=== PATIENT | female | born 1980 | race Caucasian/White ===

== ENCOUNTER 2023-12-14 13:08 | Outpatient (AMB) | payer BC, SELFPAY ==
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
[2023-12-14 13:10] VITALS: BP 96/72; PULSE 78; O2SAT 99; BMI 21.9
== END 2023-12-14 14:27 | disposition home or self-care (01) ==
PROVIDERS: PCP Internal Medicine; Visit Provider Nurse Practitioner Family
DX: R42 Dizziness and giddiness (principal); G47.19 Other hypersomnia; G47.9 Sleep disorder, unspecified; R06.83 Snoring; H53.9 Unspecified visual disturbance; H53.129 Transient visual loss, unspecified eye; G43.109 Migraine with aura, not intractable, without status migrainosus
CPT/HCPCS: 99204

== ENCOUNTER → 2023-12-14 13:08 | Outpatient (BNVA) | payer BC, SELFPAY | PROVIDERS: PCP Internal Medicine; Visit Provider Nurse Practitioner Family ==

== ENCOUNTER 2024-01-31 12:55 | Outpatient (REF) | payer BC, SELFPAY ==
--- NOTE | ~2024-01-31 | MR_ITS ---
EXAMINATION: MR BRAIN WITHOUT AND WITH CONTRAST CLINICAL INFORMATION: Transient visual loss. Dizziness x5 years. COMPARISON: None available. TECHNIQUE: Multiplanar, multisequence MRI of the brain was obtained before and after the intravenous administration of 5 mL Gadavist. FINDINGS: There is no area of abnormal restricted diffusion to indicate an acute/subacute cerebral or cerebellar infarction. There is no intracranial hemorrhage. There is no mass effect or midline shift. The brain parenchyma demonstrates normal signal intensity on T2 and FLAIR sequences. There is no extra-axial fluid collection. The ventricles are normal in size. Midline structures are normal in appearance. The cerebellar tonsils are normally positioned. There is no pathologic enhancement following the intravenous administration of contrast. The flow voids at the base of the brain are intact. The orbits are symmetric and within normal limits. There is a small mucosal retention cyst along the lateral wall of the left maxillary sinus. Mastoid air cells appear clear. MR/MR head/brain wo/w con IMPRESSION: Normal contrast-enhanced brain MRI. Electronically signed by: Ronaldo Kraft DO 03/19/2024 02:35 PM EST
[2024-01-31] MEDS: gadobutroL 7.5 ML VIAL IVPUSH (13:58)
== END 2024-01-31 12:56 | disposition home or self-care (01) ==
LOC: HO.MRI 12:55
PROVIDERS: PCP Internal Medicine; Visit Provider Nurse Practitioner Family
DX: H53.129 Transient visual loss, unspecified eye (principal); R42 Dizziness and giddiness; H53.9 Unspecified visual disturbance
CPT/HCPCS: 70553; A9585

== ENCOUNTER → 2024-04-10 13:21 | Outpatient (REF) | payer BC, SELFPAY | LOC: HO.SL 13:21 | PROVIDERS: PCP Internal Medicine; Visit Provider Nurse Practitioner Family | DX: G47.19 Other hypersomnia (principal); G47.9 Sleep disorder, unspecified; R06.83 Snoring | CPT/HCPCS: 95806 ==

== ENCOUNTER → 2024-05-30 19:30 | Outpatient (REF) | payer BC, SELFPAY ==
--- OUTSIDE RECORDS SUMMARY | 2024-05-30 21:31 | XMS_ITS | Clinical Summary ---
Author Organization [facility] Address [address] [place] [address] Care Team Providers Care Airport Clerk Name Role Phone Clark Nye MD Primary Care Prov ider Allergies Active Allergy Reactions Criticality Noted Date Comments Hydrocodone-Acetaminophen Itching 05/05/2009 Oxycodone-Acetaminophen Itching 02/22/2009 Penicillin G Potassium 04/20/2005 Other Reaction(s): Hives/Urticaria Tramadol Hcl Itching 03/09/2009 Medications Medication Sig Dispensed Refills Start Date End Date Status calcium citrate/vitamin D3 (CALCIUM CITRATE + D ORAL) Take by mouth daily. Active CYANOCOBALAMIN, VITAMIN B-12, ORAL Take by mouth daily. Active biotin 1 mg tablet Take by mouth daily. Active magnesium glycinate 100 mg tablet Take by mouth daily. Active hydroCHLOROthiazide 12.5 mg tablet Take 0.5 Tablets by mouth daily. 06/07/2023 Active Active Problems Problem Noted Date Diagnosed Date Neck pain 05/09/2022 Cervical radiculopathy 03/03/2022 Overview (04/15/2024): Seeing Dr Renae/Porfirio Castillo Shoulder impingement syndrome, right 10/24/2017 Esophageal dysmotility 11/02/2016 Overview (04/15/2024): Moderate. Seen on barium swallow 10/2016. Herpes simplex type 1 antibody positive 06/16/19 16 IBS (irritable bowel syndrome) 11/28/2013 Overview (04/15/2024): Diarrhea predominant IBS, colonoscopy [address] Prashant Franks. EGD and duodenal biopsies normal 2013. Lactose intolerance 03/04/2012 Pain of cervical facet joint 01/06/2010 Cervical sprain 01/06/2010 Osteopenia 05/27/2009 Overview (04/15/2024): Currently on HCTZ Asthma 04/20/2005 Headache 04/20/2005 Lumbago 04/20/2005 Encounters Date Type Department Care Team Description 05/07/2024 1:00 PM EST - 05/07/2024 11:59 PM EST Hospital Encounter [facility] Bone Density [address] [place] [address] Osteopenia, unspecified location Discharge Disposition: Home or Self Care from Last 3 Months Immunizations Name Administration Dates Next Due Influenza Quadravalent, MDCK , 0.5ml, preservative free (Flucelvax) 6mo and older 02/24/2020 Influenza trivalent, 0.5mL, preservative free (Fluarix; FluLaval; Fluzone) ages 6mo and older (Afluria) 3 years and older 03/05/2012 Influenza trivalent, with preservative (Fluzone; Afluria) 6mo and older 03/17/2016,01/10/2013,03/19/2011,2009,01/12/2009 Td, Unspecified 04/27/2004 Tdap Tetanus diptheria acell ular pertussis (Boostrix; Adacel) 7yo and older 01/06/2020,08/27/2009 Surgical History Surgery Date Site/Laterality Comments COLONOSCOPY 12/18/2005 PROCEDURE: IN COLONOSCOPY FLX DX W/COLLJ SPEC WHEN PFRMD; COMMENT: Golden; normal; dx: IBS-D ESOPHAGOGASTRODUODENOSCOPY 11/28/2013 PROCEDURE: IN EGD TRANSORAL BIOPSY SINGLE/MULTIPLE; COMMENT: Visually normal, duodenal biopsies: normal OTHER SURGICAL HISTORY 10/2014 PROCEDURE: IN UTERINE SUSPENSION W/WO SHORTENING LIGAMENTS SPX; COMMENT: rectocele, sling and Mirena insertion OTHER SURGICAL HISTORY 03/04/2018 PROCEDURE: HISTORICAL VAGINAL HYSTERECTOMY WITH BSO; COMMENT: GEE/BSO lap sacrocolpopexy, cystoscopy for stage II pelvic organ prolapse NOSE SURGERY 06/2020 PROCEDURE: IN UNLISTED PROCEDURE NOSE Medical History Medical History Date Comments Headache(784.0) 04/20/2005 DX:Headache(784. 0) Lumbago 04/20/2005 DX:Lumbago Childhood asthma 04/20/2005 DX:Childhood as thma Osteopenia 05/21/2009 DX:Osteopenia; C OMMENT: Referred to [facility] Client Retention Specialist, hx fractured vertabrae Other syndromes affecting ce rvical region 01/06/2010 DX:Other syndromes affecting cervical region Lactose intolerance 03/04/2012 DX:Lactose i ntolerance IBS (irritable bowel syndrome) 11/28/2013 D X:IBS (irritable bowel syndrome); COMMENT: Diarrhea predominant IBS, colonoscopy [address] Prashant Franks. History of chlamydia infection 04/2016 D X:History of chlamydia infection Esophageal dysmotility 11/02/2016 DX:Esopha geal dysmotility; COMMENT: Moderate. Seen on barium swallow 10/2016. Shoulder impingement syndrome, right 10/24/2017 DX:Shoulder impingement syndrome, right History of total hysterectom y with bilateral salpingo-oophorectomy (BSO) 03/08/2018 DX:History of to pavel hysterectomy with bilateral salpingo-oophorectomy (BSO); COMMENT: 03/04/18 stage II pelvic organ prolapse: vag Hyst, BSO, sacrocolpopexy, cystoscopy @ [facility] Family History Medical History Relation Name Comments Crohn's disease Aunt Paternal No Known Problems Brother Hyperlipidemia Father Hypertension Father No Known Problems Maternal Grandfather Coronary artery disease Maternal Grandmother Nephrolithiasis Mother Hyperlipidemia Paternal Grandfather Stroke Paternal Grandfather Dementia Paternal Grandmother No Known Problems Sister No Known Problems Son Breast cancer Neg Hx Colon cancer Neg Hx Diabetes Neg Hx Heart attack Neg Hx Ovarian cancer Neg Hx Relation Name Status Comments Aunt Paternal Alive Brother Alive Father Alive Maternal Grandfather (Age 85) Maternal Grandmother Mother Alive Paternal Grandfather Paternal Grandmother Sister Alive Son Alive : 10/11/12 Social History Tobacco Use Types Packs/Day Years Used Date Smoking Tobacco: Never Smokeless Tobacco: Never Alcohol Use Standard Drinks/Week Comments Not Currently 0 (1 standard drink = 0.6 oz pur e alcohol) Sex and Gender Information Value Date Recorded Sex Assigned at Not on file Gender Identity Not on file Sexual Orientation Not on file Job Start Date Occupation Industry Not on file Not on file Not on file Obstetrics History Last Filed Vital Signs Vital Sign Reading Time Taken Comments Blood Pressure 92/47 12/24/2023 1:52 PM EDT Pulse 59 12/24/2023 1:52 PM EDT Temperature - - Respiratory Rate - - Oxygen Saturation - - Inhaled Oxygen Concentration - - Weight 54.4 kg (120 lb) 12/24/2023 1:32 PM EDT Height 157.5 cm (5' 2 ) 12/24/2023 1:32 PM EDT Body Mass Index 21.95 12/24/2023 1:32 PM EDT Plan of Treatment Upcoming Encounters Date Type Department Care Team (Late st Contact Info) Description 06/12/2024 1:15 PM EST Office Visit [address] [phone] Justina Case MD [address] [place] [phone] 12/05/2024 3:00 PM EDT Office Visit Adult Medicine [facility] - [address] [phone] Clark Nye MD [address] [place] [address] [phone] Health Maintenance Due Date Last Done Comments Pneumococcal Vaccine: Pediatrics (0 to 5 Years) and At-Risk Patients (6 to 64 Years) (1 of 2 - PCV) 1985 Hepatitis B Vaccines (1 of 3 - 19+ 3-dose series) 1998 Colorectal Cancer Screening: Colonoscopy 01/23/2022 Depression Screening 01/23/2022 Social Influencers of Health Screening 01/23/2022 COVID-19 Vaccine ( season) 2023 05/10/2021, 09/16/2020, 08/19/2020 Influenza Vaccine (#1) 2023 , 03/17/2016, 01/10/2013, Additional history exists Breast Cancer Screening 12/11/2024 12/12/19 23, 12/01/2021, 06/02/2020, Additional history exists Cholesterol Screening (Lipid Panel) 12/04/2028 12/05/2023, 12/05/2023 DTaP,Tdap,and Td Vaccines (4 - Td or Tdap) 01/05/2030 01/06/2020, 08/27/2009, 04/27/2004 Hepatitis C Screening Completed 09/11/2017 HIV Screening Completed 03/16/2020 HIB Vaccines Aged Out No longer eligi ble based on patient's age to complete this topic HPV Vaccines Aged Out No longer eligi ble based on patient's age to complete this topic Hepatitis A Vaccines Aged Out No long er eligible based on patient's age to complete this topic IPV Vaccines Aged Out No longer eligi ble based on patient's age to complete this topic MMR Vaccines Aged Out No longer eligi ble based on patient's age to complete this topic Meningococcal ACWY Vaccine Aged Out N o longer eligible based on patient's age to complete this topic RSV Immunization Patients Under 20 months Aged Out No longer eligible based on patient's age to complete this topic Varicella Vaccines Aged Out No longer eligible based on patient's age to complete this topic Procedures Procedure Name Priority Date/Time Associated Diagnosis Comments BD BONE DENSITY DXA AXIAL SKELETON Routine 05/07/2024 1:22 PM EST Osteopenia, unspecified location IN PROTEIN ELECTROPHORETIC FRACTIONATION & QUANTITATION SERUM Routine 03/10/2024 11:31 AM EST Osteopenia PROTEIN, TOTAL Routine 03/10/2024 11:31 AM EST Osteopenia BUN Routine 03/10/2024 11:31 AM EST Osteopenia CREATININE, SERUM Routine 03/10/2024 11: 31 AM EST Osteopenia PARATHYROID HORMONE INTACT Routine 03/10/2024 11:31 AM EST Osteopenia CALCIUM Routine 03/10/2024 11:31 AM EST Osteopenia ALBUMIN Routine 03/10/2024 11:31 AM EST Osteopenia VITAMIN D 25 HYDROXY Routine 03/10/2024 11:31 AM EST Osteopenia PROTEIN ELECTROPHORESIS, SERUM Routine 03/10/2024 11:31 AM EST Osteopenia CALCIUM, URINE, 24H Routine 03/10/2024 1 1:31 AM EST Osteopenia LIPID PANEL Routine 12/05/2023 AMRIFER SCREENING DIGITAL Routine 12/11/2022 2:55 PM EDT Encounter for screening mammogram for malignant neoplasm of breast HIV SCREENING Routine 03/16/2020 HEPATITIS C SCREENING Routine 09/11/2017 from Last 3 Months or Most Recently Relevant to Health Maintenance Results * BD Bone Density DXA Axial Skeleton (05/07/2024 1:22 PM EST) Anatomical Region Laterality Modality Wrist, Hip, L-spine Bone Densito metry 05/07/2024 4:38 PM EST Impressions 05/07/2024 4:40 PM EST Osteopenia. ? [id number] -------- FINAL REPORT -------- Dictated By: Kaylee Bailey Dictated Date: 05/07/2024 16:38 ET Assigned Physician: Kaylee Bailey Reviewed and Electronically Signed By: Kaylee Bailey Signed Date: 05/07/2024 16:40 ET Workstation ID: [id number] Transcribed By: Self Edit Transcribed Date: 05/07/2024 16:38 ET Narrative 05/07/2024 4:40 PM EST History: Osteopenia. Prior hysterectomy with bilateral salpingo-oophorectomy in 2018. Comparison: No comparison imaging at this institution. Findings: Bone densitometry is performed utilizing dual energy x-ray absorptiometry (DXA) in the [employer] unit. The lumbar spine and proximal femora are evaluated in the AP projection. The FRAX questionaire was completed. The results indicate low bone mass (osteopenia), with a right femoral neck T- score of -1.9. The Z score is -1.1, indicating low bone mineral density for age. ??The detailed DEXA report will be mailed to the referring physician's office. DualFemur FRAX: 10-year Probability of Fracture: Major Osteoporotic 3.2 percent ??Hip 0.5 percent. Procedure Note Kaylee Bailey MD - 05/07/2024 History: Osteopenia. Prior hysterectomy with bilateralsalpingo-oophorectomy in 2018. Comparison: No comparison imaging at this institution. Findings: Bone densitometry is performed utilizing dual energy x-ray absorptiometry(DXA) in the [employer] unit. The lumbar spine and proximal femora areevaluated in the AP projection. The FRAX questionaire was completed. The results indicate low bone mass (osteopenia), with a right femoral neckT- score of -1.9. The Z score is -1.1, indicating low bone mineral densityfor age. The detailed DEXA report will be mailed to the referringphysician's office. DualFem[employer] FRAX: 10-year Probability of Fracture: Major Osteoporotic 3.2percent Hip 0.5 percent. IMPRESSION: Osteopenia. [id number] -------- FINAL REPORT -------- Dictated By: Kaylee Bailey Dictated Date: 05/07/2024 16:38 ET Assigned Physician: Kaylee Bailey Reviewed and Electronically Signed By: Kaylee Bailey Signed Date: 05/07/2024 16:40 ET Workstation ID: [id number] Transcribed By: Self Edit Transcribed Date: 05/07/2024 16:38 ET Justina Case MD IM DXA PROCEDURES * PATHOLOGIST REVIEW PROTEIN ELECTROPHORESIS (03/10/2024 11:31 AM EST) Pathologist Interpretation Marilyn Mota MD 03/13/2024 11:51 AM EST [facility] Blood Venous blood specimen / Unknown Venipuncture / Unknown 03/10/2024 11:31 AM EST 03/10/2024 11:31 AM EST Justina Case MD LAB BLOOD ORDERABLES [facility] [address] [place] [address], * Calcium, urine, 24H (03/10/2024 11:31 AM EST) Calcium, Ur 12.0 mg/dL LAB CHEMISTRY METHOD 03/10/2024 5:06 PM EST [facility] Calcium, 24H Urine 252 50 - 400 mg/24 hr LAB CHEMISTRY METHOD 03/10/2024 5:06 PM [facility] Urine Volume 2,100 mL LAB CHEMISTRY METHOD 03/10/2024 5:06 PM [facility] Collection Interval, Ur 24 hr LAB CHEMISTRY METHOD 03/10/2024 5:06 PM [facility] Urine Urine specimen from urethra / Unknown Non-blood Collection / Unknown 03/10/2024 11:31 AM EST 03/10/2024 11:31 AM EST Justina Case MD LAB URINE ORDERABLES Performing Organization Address City/[facility]/ZIP Co de Phone Number [facility] [address] [place] [address], * Creatinine (03/10/2024 11:31 AM EST) Creatinine 0.68 0.50 - 1.10 mg/dL LAB CHEMISTRY METHOD 03/10/2024 2:28 PM [facility] eGFR 110 >=60 mL/min/1. 73m2 LAB CHEMISTRY METHOD 03/10/2024 2:28 PM [facility] Comment:Calculation based on the??Chronic Kidney Disease Epidemiology Collaboration (CKD-EPI) equation refit??without adjustment for race. Blood Venous blood specimen / Unknown Venipuncture / Unknown 03/10/2024 11:31 AM EST 03/10/2024 11:31 AM EST Justina Case MD LAB BLOOD ORDERABLES Performing Organization Address City/[facility]/ZIP Co de Phone Number [facility] [address] [place] [address], [place] [phone] * Vitamin D 25 hydroxy (03/10/2024 11:31 AM EST) Pathologist [facility] Vit D, 25-Hydroxy 37.1 30.0 - 80.0 ng/mL LAB CHEMISTRY METHOD 03/10/2024 2:31 PM EST [facility] Blood Venous blood specimen / Unknown Venipuncture / Unknown 03/10/2024 11:31 AM EST 03/10/2024 11:31 AM EST Justina Case MD LAB BLOOD ORDERABLES Performing Organization Address City/[facility]/ZIP Co de Phone Number [facility] [address] [place] [address], [place] [phone] * BUN (03/10/2024 11:31 AM EST) [facility] BUN 12 5 - 25 mg/dL LAB CHEMISTRY METHOD 03/10/2024 2:28 PM EST [facility] Blood Venous blood specimen / Unknown Venipuncture / Unknown 03/10/2024 11:31 AM EST 03/10/2024 11:31 AM EST Justina Case MD LAB BLOOD ORDERABLES Performing Organization Address City/[facility]/ZIP Co de Phone Number [facility] [address] [place] [address], [place] [phone] * Protein electrophoresis, serum (03/10/2024 11:31 AM EST) [facility] Total Protein 6.7 6.0 - 8.0 g/dL LAB CHEMISTRY METHOD 03/13/2024 11:51 AM [facility] Albumin, Serum 3.9 2.9 - 4.1 g/dL LAB CHEMISTRY METHOD 03/13/2024 11:51 AM [facility] Alpha 1 Globulin (g/dL) 0.2 0.1 - 0.5 g/dL LAB CHEMISTRY METHOD 03/13/2024 11:51 AM [facility] Alpha 2 Globulin (g/dL) 0.8 0.7 - 1.5 g/dL LAB CHEMISTRY METHOD 03/13/2024 11:51 AM [facility] Beta (g/dL) 0.7 0.7 - 1.5 g/dL LAB CHEMISTRY METHOD 03/13/2024 11:51 AM [facility] Gamma Globulin (g/dL) 1.1 0.7 - 1.9 g/dL LAB CHEMISTRY METHOD 03/13/2024 11:51 AM [facility] SPEP Interpretation Essentially normal pattern. No M-Jameel seen. LAB CHEMISTRY METHOD 03/13/2024 11:51 AM [facility] Blood Venous blood specimen / Unknown Venipuncture / Unknown 03/10/2024 11:31 AM EST 03/10/2024 11:31 AM EST Justina Case MD LAB BLOOD ORDERABLES [facility] [address] [place] [address], * Protein, total (03/10/2024 11:31 AM EST) Total Protein 6.7 6.0 - 8.0 g/dL LAB CHEMISTRY METHOD 03/10/2024 8:07 PM [facility] Blood Venous blood specimen / Unknown Venipuncture / Unknown 03/10/2024 11:31 AM EST 03/10/2024 11:31 AM EST Justina Case MD LAB BLOOD ORDERABLES Performing Organization Address [facility]/ZIP Co de Phone Number [facility] [address] [place] [address], * Parathyroid hormone intact (03/10/2024 11:31 AM EST) PTH 55.8 18.5 - 88.0 pcg/mL LAB CHEMISTRY METHOD 03/10/2024 2:32 PM EST [facility] Blood Venous blood specimen / Unknown Venipuncture / Unknown 03/10/2024 11:31 AM EST 03/10/2024 11:31 AM EST Justina Case MD LAB BLOOD ORDERABLES Performing Organization Address [facility] Co de Phone Number [facility] [address] [place] [address], * Calcium (03/10/2024 11:31 AM EST) Calcium 9.1 8.5 - 10.5 mg/dL LAB CHEMISTRY METHOD 03/10/2024 2:28 PM EST [facility] Blood Venous blood specimen / Unknown Venipuncture / Unknown 03/10/2024 11:31 AM EST 03/10/2024 11:31 AM EST Justina Case MD LAB BLOOD ORDERABLES Performing Organization Address City/[facility]/ZIP Co de Phone Number [facility] [address] [place] [address], [place] [phone] * Albumin (03/10/2024 11:31 AM EST) Albumin 4.0 3.2 - 5.0 g/dL LAB CHEMISTRY METHOD 03/10/2024 2:28 PM EST [facility] Blood Venous blood specimen / Unknown Venipuncture / Unknown 03/10/2024 11:31 AM EST 03/10/2024 11:31 AM EST Justina Case MD LAB BLOOD ORDERABLES [facility] ([facility] [address] [place] [address], * Lipid panel (12/05/2023) LDL/HDL Ratio 2 0 - 4 Triglycerides 47 0 - 150 mg/dL Cholesterol 117 0 - 200 mg/dL HDL 58 40 mg/dL LDL Cholesterol 50 0 - 100 mg/dL Blood Venous blood specimen / Unknown Historical Provider LAB BLOOD ORDERAB LES * MARIFER SCREENING DIGITAL (12/11/2022 2:55 PM EDT) Anatomical Region Laterality Modality Mammography 12/11/2022 2:20 PM EDT Narrative 12/11/2022 2:55 PM EDT [facility] Diagnostic Imaging Department [address] [place] [address] Patient: ??VANESSA HOLLINGSWORTH ?/Age/Sex: 1980 - Unit#: ??[id number] ? Location/Status: ??SPDIMAM/REG CLI ? Mnemonic/Ordering Site: ??DIGSC/SPMAM Ordering Physician: ??CLARK NYE Marifer Screening Digital - 12/11/22 - [id number] Report Status:Signed EXAM: [facility] Screening Digital EXAM DATE AND TIME: 12/11/2022 2:34 PM HISTORY: ??Routine screening mammography COMPARISON: ??12/01/2021, 06/01/2020 TECHNIQUE: Bilateral digital breast tomosynthesis was performed in the CC and MLO projections. Computer aided detection with [employer] 3D 3.1 was employed. TISSUE DENSITY: D. ??The breasts are extremely dense, which lowers the sensitivity of mammography. FINDINGS: No suspicious masses, grouped microcalcifications, or areas of architectural distortion are seen. The skin and vascularity are unremarkable. IMPRESSION: Stable mammographic appearance of the breasts. ??No evidence of malignancy is seen. A negative mammogram in the presence of a clinically suspicious palpable abnormality does not preclude the possibility of malignancy or alter the indications for biopsy. BI-RADS: ??Category 1: Negative RECOMMENDATION(S): 1: Routine screening mammogram BILATERAL in 1 year. Dictating Physician: ??MARIA EUGENIA THACKER MD Electronically Signed by: ??MARIA EUGENIA THACKER MD Dic Date/Time: ??12/11/22 1453 Sign date/Time: ??12/11/22 1454 Procedure Note Maria Eugenia Thacker MD - 06/05/2023 [facility] Diagnostic Imaging Department [address] [place], [place] [id number] Patient: DARRICKVANESSAO.B./Age/Sex: 1980 - 42 - F Unit#: [id number] Location/Status: [facility]/REG CLI Mnemonic/Ordering Site: [facility] Ordering Physician: CLARK NYE Marifer Screening Digital - 12/11/22 - [id number] Report Status:Signed EXAM: [facility] Screening Digital EXAM DATE AND TIME: 12/11/2022 2:34 PM HISTORY: Routine screening mammography COMPARISON: 12/01/2021, 06/01/2020 TECHNIQUE: Bilateral digital breast tomosynthesis was performed in the CCand MLO projections. Computer aided detection with [employer] 3D 3.1was employed. TISSUE DENSITY: D. The breasts are extremely dense, which lowers the sensitivity of mammography. FINDINGS: No suspicious masses, grouped microcalcifications, or areas ofarchitectural distortion are seen. The skin and vascularity are unremarkable. IMPRESSION: Stable mammographic appearance of the breasts. No evidence of malignancyis seen. A negative mammogram in the presence of a clinically suspicious palpable abnormality does not preclude the possibility of malignancy or alter the indications for biopsy. BI-RADS: Category 1: Negative RECOMMENDATION(S): 1: Routine screening mammogram BILATERAL in 1 year. Dictating Physician: MARIA EUGENIA THACKER MD Electronically Signed by: MARIA EUGENIA THACKER MD Dic Date/Time: 12/11/22 1453 Sign date/Time: 12/11/22 1455 Clark Nye MD [facility] BI PRO CEDURES * HIV Screening (03/16/2020) HIV Screening abstracted Historical Provider MD MIKE Menezes * Hepatitis C Screening (09/11/2017) Hepatitis C Screening abstracted Historical Provider MD MIKE Menezes from Last 3 Months or Most Recently Relevant to Health Maintenance Care Teams Airport Clerk Relationship Specialty Start Date End Date Clark Nye MD [address] [place] [address] [phone] PCP - General 05/29/22
--- OUTSIDE RECORDS SUMMARY | 2024-05-30 21:31 | XMS_ITS | Encounter Summary ---
Author Organization [facility] Address [address] [place] [address] Care Team Providers Care Paint Grinder Name Role Phone Dayanara Nye MD Primary Care Prov ider Reason for Referral * Imaging (Routine) - Closed Specialty Diagnoses / Procedures Referred By Contac t Referred To Contact Radiology Diagnoses Osteopenia, unspecified location Procedures BD Bone Density DXA Axial Skeleton Justina Case MD [address] [place] [phone] [facility] Referral ID Status Reason Start Date Expiration Date Visits Re quested Visits Authorized [id number] Closed 02/15/2024 02/14/2025 1 1 Reason for Visit * Imaging (Routine) - Closed Specialty Diagnoses / Procedures Referred By Contac t Referred To Contact Radiology Diagnoses Osteopenia, unspecified location Procedures BD Bone Density DXA Axial Skeleton Justina Case MD [address] [place] [phone] [facility] Referral ID Status Reason Start Date Expiration Date Visits Re quested Visits Authorized [id number] Closed 02/15/2024 02/14/2025 1 1 Encounter Details Date Type Department Care Team (Latest Contact Info) Description 05/07/2024 1:00 PM EST - 05/07/2024 11:59 PM EST Hospital Encounter [facility] Bone Density [address] [place] [phone] Osteopenia, unspecified location Discharge Disposition: Home or Self Care Social History Tobacco Use Types Packs/Day Years [...] file Not on file Not on file documented as of this encounter Medications at Time of Discharge Medication Sig Dispensed Refills Start Date End Date biotin 1 mg tablet Take by mouth daily. calcium citrate/vitamin D3 (CALCIUM CITRATE + D ORAL) Take by mouth daily. CYANOCOBALAMIN, VITAMIN B-12, ORAL Take by mouth daily. hydroCHLOROthiazide 12.5 mg tablet Take 0.5 Tablets by mouth daily. 06/07/2023 magnesium glycinate 100 mg tablet Take by mouth daily. documented as of this encounter Discharge Disposition Disposition Code Departure Means Destination Home or Self Care documented in this encounter Plan of Treatment Upcoming Encounters Date Type Department Care Team (Late st Contact Info) Description 06/12/2024 1:15 PM EST Office Visit Endocrinology [address] [phone] Justina Case MD [address] [place] [phone] 12/05/2024 3:00 PM EDT Office Visit Adult Medicine [address] [phone] Dayanara Nye MD [address] [place] [phone] documented as of this encounter Procedures Procedure Name Priority Date/Time Associated Diagnosis Comments BD BONE DENSITY DXA AXIAL SKELETON Routine 05/07/2024 1:22 PM EST Osteopenia, unspecified location documented in this encounter Results * BD Bone Density DXA Axial Skeleton (05/07/2024 1:22 PM EST) Anatomical Region Laterality Modality Wrist, Hip, L-spine Bone Densito metry 05/07/2024 4:38 PM EST Impressions 05/07/2024 4:40 PM EST Osteopenia. ? [id number] -------- FINAL REPORT -------- Dictated By: Kaylee Bailey Dictated Date: 05/07/2024 16:38 ET Assigned Physician: Kaylee Bailey Reviewed and Electronically Signed By: Kaylee Bailey Signed Date: 05/07/2024 16:40 ET Workstation ID: [id number] Transcribed By: Self Edit Transcribed Date: 05/07/2024 16:38 ET Narrative 05/07/2024 4:40 PM EST History: Osteopenia. Prior hysterectomy with bilateral salpingo-oophorectomy in 2018. Comparison: No comparison imaging at this institution. Findings: Bone densitometry is performed utilizing dual energy x-ray absorptiometry (DXA) in the sifonrigVisConPro unit. The lumbar spine and proximal femora [...] utilizing dual energy x-ray absorptiometry(DXA) in the sifonrigy unit. The lumbar spine and proximal femora [...] Osteoporotic 3.2percent Hip 0.5 percent. IMPRESSION: Osteopenia. [id number] -------- FINAL REPORT -------- Dictated By: Kaylee Bailey Dictated Date: 05/07/2024 16:38 ET Assigned Physician: Kaylee Bailey Reviewed and Electronically Signed By: Kaylee Bailey Signed Date: 05/07/2024 16:40 ET Workstation ID: [id number] Transcribed By: Self Edit Transcribed Date: 05/07/2024 16:38 ET Justina Case MD IMG DXA PROCEDURES documented in this encounter Visit Diagnoses Diagnosis Osteopenia, unspecified location documented in this encounter Care Teams Paint Grinder Relationship Specialty Start Date End Date Dayanara Nye MD [address] [place] [phone] PCP - General 05/29/22 documented as of this encounter
--- OUTSIDE RECORDS SUMMARY | 2024-05-30 21:31 | XMS_ITS | Clinical Summary ---
Author Organization [facility] Address [address] [place] [address] Care Team Providers Care Reception Agent Name Role Phone Chinedu Maguire MD Primary Care Provider [phone] Social History Tobacco Use Types Packs/Day Years Used Date Smoking Tobacco: Never Assessed Sex and Gender Information Value Date Recorded Sex Assigned at Not on file Gender Identity Not on file Sexual Orientation Not on file Plan of Treatment Health Maintenance Due Date Last Done Comments Hepatitis C Virus Screening 1979 HIV Screening 1992 DTaP/Tdap/Td Vaccines (1 - Tdap) 1998 Hepatitis B Vaccines (1 of 3 - 19+ 3-dose series) 1998 COVID-19 Vaccine (2023-2 5 season) 2023 HPV Vaccines Aged Out No longer eligi ble based on patient's age to complete this topic Pneumococcal Vaccine: Pediat kinga (0-5 Years) and At-Risk Patients (6 to 49 Years) Aged Out No longer eligible b ased on patient's age to complete this topic Care Teams Reception Agent Relationship Specialty Start Date End Date Chinedu Maguire MD [address] [place] [phone] PCP - General [id number]
== END ==
LOC: HO.SL 19:30
PROVIDERS: PCP Internal Medicine; Visit Provider Nurse Practitioner Family
DX: G47.19 Other hypersomnia (principal); G47.9 Sleep disorder, unspecified; R06.83 Snoring
CPT/HCPCS: 95810

== ENCOUNTER → 2024-05-30 21:40 | Outpatient (BNV) | payer BC, SELFPAY | PROVIDERS: PCP Internal Medicine; Visit Provider Psychiatry & Neurology Neurology | DX: R06.83 Snoring (principal); G47.19 Other hypersomnia | CPT/HCPCS: 95810 ==

== ENCOUNTER 2024-06-24 13:05 | Outpatient (AMB) | payer BC, SELFPAY ==
[2024-06-24 13:08] VITALS: BP 100/70; PULSE 74; O2SAT 98; BMI 21.8
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
--- OUTSIDE RECORDS SUMMARY | 2024-06-24 16:03 | XMS_ITS | Clinical Summary ---
Author Organization [facility] Address [address] [place] [address] Care Team Providers Care Pre Press Proofer Name Role Phone Chinedu Maguire MD Primary Care Provider [phone] Social History Tobacco Use Types Packs/Day Years [...] age to complete this topic Care Teams Pre Press Proofer Relationship Specialty Start Date End Date Chinedu Maguire MD [address] [place] [phone] PCP - General 1899
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
--- OUTSIDE RECORDS SUMMARY | 2024-06-24 16:03 | XMS_ITS | Clinical Summary ---
Author Organization [facility] Address [address] [place] [address] Care Team Providers Care Client Services Account Manager Name Role Phone Clark Nye MD Primary Care Prov ider Allergies Active Allergy Reactions Criticality Noted Date Comments Hydrocodone-Acetaminophen Itching 05/05/2009 Oxycodone-Acetaminophen Itching 02/22/2009 Penicillin G Potassium 04/20/2005 Other Reaction(s): Hives/Urticaria Tramadol Hcl Itching 03/09/2009 Medications calcium citrate/vitami n D3 (CALCIUM CITRATE + D ORAL) Take by mouth daily. Active CYANOCOBALAMIN , VITAMIN B-12, ORAL Take by mouth daily. Active biotin 1 mg tablet Take by mouth daily. Active magnesium glycinate 100 mg tablet Take by mouth daily. Active hydroCHLOROthi azide 12.5 mg tablet Take 0.5 Tablets by mouth daily. 4 06/12/19 25 Discontinued Active Problems Problem Noted Date Diagnosed Date Neck pain 05/09/2022 Cervical radiculopathy 03/03/2022 Overview (04/15/2024): Seeing Dr Renae/Porfirio Castillo Shoulder impingement syndrome, right 10/24/2017 Esophageal dysmotility 11/02/2016 Overview (04/15/2024): Moderate. Seen on barium swallow 10/2016. Herpes simplex type 1 antibody positive 06/16/19 16 IBS (irritable bowel syndrome) 11/28/2013 Overview (04/15/2024): Diarrhea predominant IBS, colonoscopy [address] Prashant Franks. EGD and duodenal biopsies normal 2013. Lactose intolerance 03/04/2012 Pain of cervical facet joint 01/06/2010 Cervical sprain 01/06/2010 Osteopenia 05/27/2009 Overview (04/15/2024): Currently on HCTZ Asthma 04/20/2005 Headache 04/20/2005 Lumbago 04/20/2005 Encounters Date Type Department Care Team Description 06/12/2024 1:15 PM EST Office Visit Endocrinology - [place] [address] [place] [address] Justina Case MD Osteopenia, unspecified location (Primary Dx) 05/07/2024 1:00 PM EST - 05/07/2024 11:59 PM EST Hospital Encounter [facility] Bone Density [address] [place] [address] Osteopenia, unspecified location Discharge Disposition: [...] Surgery Date Site/Laterality Comments COLONOSCOPY 12/18/2005 PROCEDURE: [facility] COLONOSCOPY FLX DX W/COLLJ SPEC WHEN PFRMD; COMMENT: Golden; normal; dx: IBS-D ESOPHAGOGASTRODUODENOSCOPY 11/28/2013 PROCEDURE: [place] EGD TRANSORAL BIOPSY SINGLE/MULTIPLE; COMMENT: Visually normal, duodenal biopsies: normal OTHER SURGICAL HISTORY 10/2014 PROCEDURE: [place] UTERINE SUSPENSION W/WO SHORTENING LIGAMENTS SPX; COMMENT: rectocele, sling and Mirena insertion OTHER SURGICAL HISTORY 03/04/2018 PROCEDURE: HISTORICAL VAGINAL HYSTERECTOMY WITH BSO; COMMENT: GEE/BSO lap sacrocolpopexy, cystoscopy for stage II pelvic organ prolapse NOSE SURGERY 06/2020 PROCEDURE: [place] UNLISTED PROCEDURE NOSE Medical History Medical History Date Comments Headache(784.0) 04/20/2005 DX:Headache(784. 0) Lumbago 04/20/2005 DX:Lumbago Childhood asthma 04/20/2005 DX:Childhood as thma Osteopenia 05/21/2009 DX:Osteopenia; C OMMENT: [place] [facility], hx fractured vertabrae Other syndromes affecting ce [...] prolapse: vag Hyst, BSO, sacrocolpopexy, [place] [facility] Family History Medical History Relation Name Comments [...] on file Sexual Orientation Not on file Obstetrics History Last Filed [...] Mass Index 21.4 06/12/2024 1:21 PM EST Plan of Treatment Upcoming Encounters Date Type Department Care Team (Late st Contact Info) Description 12/05/2024 3:00 PM EDT Office Visit Adult Medicine [address] [phone] Clark Nye MD [address] [place] [phone] Health Maintenance Due Date Last Done Comments Hepatitis B Vaccines (1 of 3 - 19+ 3-dose series) 1998 Pneumococcal Vaccine: Pediatrics (0 to 5 Years) and At-Risk Patients (6 to 64 Years) (1 of 2 - PCV) 1998 Colorectal Cancer Screening: Colonoscopy 01/23/2022 Depression Screening 01/23/2022 Social Influencers of Health Screening 01/23/2022 COVID-19 Vaccine ( season) 2023 05/10/2021, 09/16/2020, 08/19/2020 Influenza Vaccine (#1) 2023 0, 03/17/2016, 01/10/2013, Additional history exists Breast Cancer [...] patient's age to complete this topic Meningococcal B Vacine Aged Out No lo nger eligible based on patient's age to complete [...] 05/07/2024 1:22 PM EST Osteopenia, unspecified location LIPID PANEL Routine 12/05/2023 CARMEN SCREENING DIGITAL Routine 12/11/2022 2:55 PM EDT [...] Impressions 05/07/2024 4:40 PM EST Osteopenia. ? [id number] -------- FINAL REPORT -------- Dictated By: Kaylee Bailey Dictated Date: 05/07/2024 16:38 ET Assigned Physician: Kaylee Bailey Reviewed and Electronically Signed By: Kaylee Baiely Signed Date: 05/07/2024 16:40 ET Workstation ID: [id number] Transcribed By: Self Edit Transcribed Date: 05/07/2024 16:38 ET Narrative 05/07/2024 4:40 PM EST History: Osteopenia. Prior hysterectomy with bilateral salpingo-oophorectomy in 2018. Comparison: No comparison imaging at this institution. Findings: Bone densitometry is performed utilizing dual energy x-ray absorptiometry (DXA) in the [employer] Cytometers unit. The lumbar spine and proximal femora [...] utilizing dual energy x-ray absorptiometry(DXA) in the [employer] Cytometers unit. The lumbar spine and proximal femora [...] Osteoporotic 3.2percent Hip 0.5 percent. IMPRESSION: Osteopenia. [id number] -------- FINAL REPORT -------- Dictated By: Kaylee Bailey Dictated Date: 05/07/2024 16:38 ET Assigned Physician: Kaylee Bailey Reviewed and Electronically Signed By: Kaylee Bailey Signed Date: 05/07/2024 16:40 ET Workstation ID: [id number] Transcribed By: Self Edit Transcribed Date: 05/07/2024 16:38 ET Justina Case MD IMG DXA PROCEDURES Final Result * Lipid panel (12/05/2023) LDL/HDL Ratio 2 0 - 4 Triglycerides 47 0 - 150 mg/dL Cholesterol 117 0 - 200 mg/dL HDL 58 >=40 mg/dL LDL Cholesterol 50 0 - 100 mg/dL Blood Venous blood specimen / Unknown Historical Provider LAB BLOOD ORDERABLES Elis l Result * CARMEN SCREENING DIGITAL (12/11/2022 2:55 PM EDT) Anatomical Region Laterality Modality Mammography 12/11/2022 2:20 PM EDT Narrative 12/11/2022 2:55 PM EDT [facility] Diagnostic Imaging Department [address] [place] [address] Patient: ??VANESSA HOLLINGSWORTH ?/Age/Sex: 1980 - 42 - F Unit#: ??[id number] ? Location/Status: ??SPDIMAM/REG CLI ? Mnemonic/Ordering Site: ??DIGSC/SPMAM Ordering Physician: ??CLARK NYE [facility] Screening Digital - 12/11/22 - [id number] Report Status:Signed EXAM: [facility] Screening Digital EXAM DATE AND TIME: 12/11/2022 2:34 PM HISTORY: ??Routine screening mammography COMPARISON: ??12/01/2021, 06/01/2020 TECHNIQUE: Bilateral digital breast tomosynthesis was performed in the CC and MLO projections. Computer aided detection with [employer] 3D 3.1 was employed. TISSUE DENSITY: D. [...] ??MARIA EUGENIA THACKER MD Dic Date/Time: ??12/11/22 8673 Sign date/Time: ??12/11/22 1457 Procedure Note Maria Eugenia Thacker MD - 06/05/2023 [facility] Diagnostic Imaging Department [address] [place] [address] Patient: VANESSA HOLLINGSWORTH /Age/Sex: 1980 - 42 - F Unit#: [id number] Location/Status: SPDIMAM/REG CLI Mnemonic/Ordering Site: [facility] Ordering Physician: CLARK NYE [facility] Screening Digital - 12/11/22 - 1434 Report Status:Signed EXAM: [facility] Screening Digital EXAM DATE AND TIME: 12/11/2022 2:34 PM HISTORY: Routine screening mammography COMPARISON: 12/01/2021, 06/01/2020 TECHNIQUE: Bilateral digital breast tomosynthesis was performed in the CCand MLO projections. Computer aided detection with [employer] 3D 3.1was employed. TISSUE DENSITY: D. The [...] MARIA EUGENIA THACKER MD Dic Date/Time: 12/11/22 1457 Sign date/Time: 12/11/22 1455 us Clark Nye MD IMG BI PROCEDURES Final Result * HIV Screening (03/16/2020) Pathologist [facility] HIV Screening abstracted us Historical Provider HEALTH MAINTENANCE Final Result * Hepatitis C Screening (09/11/2017) Hepatitis C Screening abstracted Historical Provider HEALTH MAINTENANCE Final Result from Last 3 Months or Most Recently Relevant to Health Maintenance Insurance [facility] Care Teams Client Services Account Manager Relationship Specialty Start Date End Date Clark Nye MD [address] [place] [phone] PCP - General 05/29/22
== END 2024-06-24 13:55 | disposition home or self-care (01) ==
PROVIDERS: PCP Internal Medicine; Visit Provider Nurse Practitioner Family
DX: M54.2 Cervicalgia (principal); M50.30 Other cervical disc degeneration, unspecified cervical region; M50.20 Other cervical disc displacement, unspecified cervical region
CPT/HCPCS: 99214

== ENCOUNTER → 2024-08-13 14:06 | Outpatient (BNV) | payer BC, SELFPAY | PROVIDERS: PCP Internal Medicine; Visit Provider Radiology Diagnostic Radiology | DX: M50.30 Other cervical disc degeneration, unspecified cervical region (principal) | CPT/HCPCS: 72141 ==

== ENCOUNTER 2024-08-13 14:08 | Outpatient (REF) | payer BC, SELFPAY ==
--- NOTE | ~2024-08-13 | MR_ITS ---
EXAMINATION: MR CERVICAL SPINE WITHOUT CONTRAST CLINICAL INFORMATION: Cervicalgia. COMPARISON: None available. TECHNIQUE: MRI of the cervical spine was obtained using routine sequences without contrast. FINDINGS: Craniocervical junction is intact and normal. No bone marrow STIR signal abnormality. Cervical spinal cord signal is normal. Multilevel disc desiccation and marginal osteophyte formation C3 C7. Reverse curvature apex at C4-5. Grade 1 retrolisthesis C4-5, and C5-6. C2-3: No disc herniation. No neuroforamina stenosis. C3-4: Disc osteophyte complex formation. No cord compression. Left neuroforamina narrowing on a degenerative basis. C4-5: Broad-based disc osteophyte formation. No cord compression. Bilateral neuroforamina narrowing on a degenerative basis. The C5-6: Broad-based disc osteophyte complex formation abutting the cord. Bilateral neuroforamina narrowing on a degenerative basis. C6-7: Broad-based disc osteophyte complex formation abutting the cord. Bilateral neuroforamina narrowing on a degenerative basis. Small perineural cysts, bilaterally. C7-T1: No disc herniation. No neuroforamina stenosis. No prevertebral compartment hematoma, mass or fluid collection. Flow-void signal within the main vessels is normal. Codominant vertebral arteries. MR/MR cervical spine wo con IMPRESSION: Multilevel cervical spondylosis resulting in central spinal canal stenosis and bilateral neuroforamina stenosis at C5-6 and to a lesser extent C6-7 and C4-5 levels without cord edema and or myelopathy Electronically signed by: Kirk Taylor MD 08/14/2024 09:40 AM EDT
--- OUTSIDE RECORDS SUMMARY | 2024-08-13 16:58 | XMS_ITS | Clinical Summary ---
Author Organization [facility] Address [address] [place] [address] Care Team Providers Care Block Piler Name Role Phone Chinedu Maguire MD Primary Care Provider [phone] Social History Tobacco Use Types Packs/Day Years Used Date Smoking Tobacco: Never Assessed Comments Unknown Sex and Gender Information Value Date Recorded Sex Assigned at Not on file Legal Sex Female 2:41 PM EDT Gender Identity Not on file [...] age to complete this topic Care Teams Block Piler Relationship Specialty Start Date End Date Chinedu Maguire MD PCP - General [phone]
--- OUTSIDE RECORDS SUMMARY | 2024-08-13 16:58 | XMS_ITS | Clinical Summary ---
Author Organization [facility] [place] Address [address] [place] [address] Care Team Providers Care Hot Roll Inspector Name Role Phone Dayanara Nye MD Primary Care Prov ider Allergies Active Allergy Reactions Criticality Noted Date Comments Hydrocodone-Acetaminophen Itching 05/05/2009 Oxycodone-Acetaminophen Itching 02/22/2009 Penicillin G Potassium 04/20/2005 Other Reaction(s): Hives/Urticaria Tramadol Hcl Itching 03/09/2009 Medications calcium citrate/vitamin D3 (CALCIUM CITRATE + D ORAL) Take by mouth daily. Active CYANOCOBALAMIN, VITAMIN B-12, ORAL Take by mouth daily. Active biotin 1 mg tablet Take by mouth daily. Active magnesium glycinate 100 mg tablet Take by mouth daily. Active Active Problems Problem Noted Date Diagnosed [...] Description 06/12/2024 1:15 PM EST Office Visit [facility] [address] [place] [address] Justina Case MD Osteopenia, unspecified location (Primary Dx) from Last 3 Months Immunizations Name Administration [...] Surgery Date Site/Laterality Comments COLONOSCOPY 12/18/2005 PROCEDURE: [place] COLONOSCOPY FLX DX W/COLLJ SPEC WHEN PFRMD; COMMENT: [place]; normal; dx: IBS-D ESOPHAGOGASTRODUODENOSCOPY 11/28/2013 PROCEDURE: [place] EGD TRANSORAL BIOPSY SINGLE/MULTIPLE; COMMENT: Visually normal, duodenal biopsies: normal OTHER SURGICAL HISTORY 10/2014 PROCEDURE: [place] UTERINE SUSPENSION W/WO SHORTENING LIGAMENTS SPX; COMMENT: rectocele, sling and Mirena insertion OTHER SURGICAL HISTORY 03/04/2018 PROCEDURE: HISTORICAL VAGINAL HYSTERECTOMY WITH BSO; COMMENT: GEE/BSO lap sacrocolpopexy, cystoscopy for stage II pelvic organ prolapse NOSE SURGERY 06/2020 PROCEDURE: [place] UNLISTED PROCEDURE NOSE Medical History Medical History Date Comments Headache(784.0) 04/20/2005 DX:Headache(784. 0) Lumbago 04/20/2005 DX:Lumbago Childhood asthma 04/20/2005 DX:Childhood as thma Osteopenia 05/21/2009 DX:Osteopenia; C OMMENT: Referred to [facility] [employer], hx fractured vertabrae Other syndromes affecting ce [...] prolapse: vag Hyst, BSO, sacrocolpopexy, cystoscopy @ [facility] Family History Medical History Relation Name Comments [...] 3:00 PM EDT Office Visit Adult Medicine [address] [phone] Dayanara Nye MD [address] [place] [phone] Health Maintenance Due Date Last Done Comments Hepatitis B Vaccines (1 of 3 - 19+ 3-dose series) 1998 Pneumococcal Vaccine: Pediatrics (0 to 5 Years) and At-Risk Patients (6 to 64 Years) (1 of 2 - PCV) 1998 Colorectal Cancer Screening: Colonoscopy 01/23/2022 Depression Screening 01/23/2022 Social Influencers of Health Screening 01/23/2022 Breast Cancer Screening 12/12/2023 12/12/19 23, 12/01/2021, 06/02/2020, Additional history exists COVID-19 Vaccine ( - 2023- season) 2023 05/10/2021, 09/16/2020, 08/19/2020 Influenza Vaccine (Season Ended) 2024 02/24/2020, 03/17/2016, 01/10/2013, Additional history exists Cholesterol Screening (Lipid Panel) [...] age to complete this topic Meningococcal B Vaccine Aged Out No l onger eligible based on patient's age to complete this topic RSV Immunization Patients Under 20 months Aged Out No longer eligible based on patient's age to complete this topic Varicella Vaccines Aged Out No longer eligible based on patient's age to complete this topic Procedures Procedure Name Priority Date/Time Associated Diagnosis Comments EXTERNAL XRAY REPORT Routine 07/10/2024 9:31 AM EDT THYROID STIMULATING HORMONE Routine 06/24/2024 3:37 PM EST Osteopenia, unspecified location VITAMIN D 25 HYDROXY Routine 06/24/2024 3:37 PM EST Osteopenia, unspecified location LUTEINIZING HORMONE Routine 06/24/2024 3 :37 PM EST Osteopenia, unspecified location FOLLICLE STIMULATING HORMONE Routine 06/24/2024 3:37 PM EST Osteopenia, unspecified location THYROXINE FREE Routine 06/24/2024 3:37 PM EST Osteopenia, unspecified location LIPID PANEL Routine 12/05/2023 CARMEN SCREENING DIGITAL Routine 12/11/2022 2:55 PM EDT Encounter for screening mammogram for malignant neoplasm of breast HM HIV SCREENING Routine 03/16/2020 HEPATITIS C SCREENING Routine 09/11/2017 from Last 3 Months or Most Recently Relevant to Health Maintenance Results * External Xray Report (07/10/2024 9:31 AM EDT) Anatomical Region Laterality Modality Radiographic Jeannie ging Historical Provider MD IMG XR PROCEDURES Final R esult * Vitamin D 25 hydroxy (06/24/2024 3:37 PM EST) Vit D, 25-Hydroxy 38.6 30.0 - 80.0 ng/mL LAB CHEMISTRY METHOD 06/24/2024 7:33 PM EST [facility] Blood Venous blood specimen / Unknown Venipuncture / Unknown 06/24/2024 3:37 PM EST 06/24/2024 3:37 PM EST Justina Case MD LAB BLOOD ORDERABLES Final Resul t Performing Organization Address City/[facility]/ZIP Co de Phone Number [facility] [address] [place] [address], * Thyroid stimulating hormone (06/24/2024 3:37 PM EST) Pathologist [facility] TSH 1.50 0.40 - 4.00 mcIU/mL LAB CHEMISTRY METHOD 06/24/2024 7:33 PM EST [facility] Blood Venous blood specimen / Unknown Venipuncture / Unknown 06/24/2024 3:37 PM EST 06/24/2024 3:37 PM EST Justina Case MD LAB BLOOD ORDERABLES Final Resul t Performing Organization Address City/[facility]/ZIP Co de Phone Number [facility] [address] [place] [address], * Thyroxine free (06/24/2024 3:37 PM EST) Free T4 1.25 0.70 - 1.80 ng/dL LAB CHEMISTRY METHOD 06/24/2024 7:33 PM EST [facility] Blood Venous blood specimen / Unknown Venipuncture / Unknown 06/24/2024 3:37 PM EST 06/24/2024 3:37 PM EST Justina Case MD LAB BLOOD ORDERABLES Final Resul t Performing Organization Address [facility]/ZIP Co de Phone Number [facility] [address] [place] [address], * Luteinizing hormone (06/24/2024 3:37 PM EST) Luteinizing Hormone 6.7 See Comment mIU/mL LAB CHEMISTRY METHOD 06/24/2024 7:43 PM EST [facility] Blood Venous blood specimen / Unknown Venipuncture / Unknown 06/24/2024 3:37 PM EST 06/24/2024 3:37 PM EST Narrative [facility] - 06/24/2024 7:43 PM EST LH REFERENCE RANGES (MIU/ML) FEMALES NORMALLY MENSTRUATING: FOLLICULAR PHASE ??1.9 - 12.8 MIDCYCLE PEAK ?22.8 - 76.1 LUTEAL PHASE ?0.6 - 13.5 POSTMENOPAUSAL: ON HRT ?1.1 - ??52.4 UNTREATED ? 8.6 - ??61.8 Justina Case MD LAB BLOOD ORDERABLES Final Resul t Performing Organization Address City/[facility]/ZIP Co de Phone Number [facility] [address] [place] [address], * Follicle stimulating hormone (06/24/2024 3:37 PM EST) Follicle Stimulating Hormone 12.2 See Comment mIU/mL LAB CHEMISTRY METHOD 06/24/2024 7:38 PM EST [facility] Comment: FSH REFERENCE RANGES (MIU/ML) FEMALES NORMALLY MENSTRUATING: FOLLICULAR PHASE ??2.3 - 12.6 MIDCYCLE PEAK ? 5.2 - 17.5 LUTEAL PHASE ?1.7 - ??9.5 POSTMENOPAUSAL: ON HRT ?5.9 - ??72.8 UNTREATED ?12.7 - 132.2 Blood Venous blood specimen / Unknown Venipuncture / Unknown 06/24/2024 3:37 PM EST 06/24/2024 3:37 PM EST us Justina Case MD LAB BLOOD ORDERABLES Final Resul t [facility] [address] [place] [address], * Lipid panel (12/05/2023) LDL/HDL Ratio 2 [...] PM EDT Narrative 12/11/2022 2:55 PM EDT [facility] Diagnostic Imaging Department [address] [place] [address] Patient: ??VANESSA HOLLINGSWORTH ?/Age/Sex: 1980 - 42 - F Unit#: ??[id number] ? Location/Status: ??SPDIMAM/REG CLI ? Mnemonic/Ordering Site: ??DIGSC/SPMAM Ordering Physician: ??DAYANARA NYE [facility] Screening Digital - 12/11/22 - 0234 Report Status:Signed EXAM: [facility] Screening Digital EXAM DATE AND TIME: 12/11/2022 2:34 PM HISTORY: ??Routine screening mammography COMPARISON: ??12/01/2021, 06/01/2020 TECHNIQUE: Bilateral digital breast tomosynthesis was performed in the CC and MLO projections. Computer aided detection with [employer] 3D 3.1 was employed. TISSUE DENSITY: D. [...] mammogram BILATERAL in 1 year. Dictating Physician: ??BRUCE THACKER MD Electronically Signed by: ??BRUCE THACKER MD Dic Date/Time: ??12/11/22 1078 Sign date/Time: ??12/11/22 0453 Procedure Note Bruce Thacker MD - 06/05/2023 [facility] Diagnostic Imaging Department [address] [place] [address] Patient: VANESSA HOLLINGSWORTH /Age/Sex: 1980 - 42 - F Unit#: [id number] Location/Status: SPDIMA/REG CLI Mnemonic/Ordering Site: [facility] Ordering Physician: DAYANARA NYE [facility] Screening Digital - 12/11/22 - 1434 Report Status:Signed EXAM: [facility] Screening Digital EXAM DATE AND TIME: 12/11/2022 2:34 PM HISTORY: Routine screening mammography COMPARISON: 12/01/2021, 06/01/2020 TECHNIQUE: Bilateral digital breast tomosynthesis was performed in the CCand MLO projections. Computer aided detection with Eqalix 3D 3.1was employed. TISSUE DENSITY: D. The [...] mammogram BILATERAL in 1 year. Dictating Physician: BRUCE THACKER MD Electronically Signed by: BRUCE THACKER MD Dic Date/Time: 12/11/22 1455 Sign date/Time: 12/11/22 8445 Dayanara Nye MD IMG BI PROCEDURES Final Result * HIV Screening (03/16/2020) HIV Screening abstracted us Historical Provider HEALTH MAINTENANCE Final Result * Hepatitis C Screening (09/11/2017) Hepatitis C Screening abstracted us Historical Provider HEALTH MAINTENANCE Final Result from Last 3 Months or Most Recently Relevant to Health Maintenance Insurance [facility] Care Teams Hot Roll Inspector Relationship Specialty Start Date End Date Dayanara Nye MD [address] [place] [phone] PCP - General 05/29/22
== END 2024-08-13 14:09 | disposition home or self-care (01) ==
LOC: HO.MRI 14:08
PROVIDERS: PCP Internal Medicine; Visit Provider Nurse Practitioner Family
DX: M50.30 Other cervical disc degeneration, unspecified cervical region (principal); M50.20 Other cervical disc displacement, unspecified cervical region
CPT/HCPCS: 72141

== ENCOUNTER 2024-12-31 12:58 | Outpatient (AMB) | payer BC, SELFPAY ==
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
[2024-12-31 13:09] VITALS: BP 98/58; PULSE 67; O2SAT 98; BMI 21.6
--- OUTSIDE RECORDS SUMMARY | 2024-12-31 15:20 | XMS_ITS | Clinical Summary ---
Author Organization [facility] Address [address] [place] [address] Care Team Providers Care Can Feeder Name Role Phone Chinedu Maguire MD Primary Care Provider Unavail able Social History Tobacco Use Types Packs/Day Years [...] of 3 - 19+ 3-dose series) 1998 HPV Vaccines (1 - 3-dose SCD M series) 2006 COVID-19 Vaccine ( - 2023-2 5 season) 2023 Pneumococcal Vaccine: Pediat kinga (0-5 Years) and At-Risk Patients (6 to 49 Years) Aged Out No longer eligible b ased on patient's age to complete this topic Care Teams Can Feeder Relationship Specialty Start Date End Date Chinedu Maguire MD PCP - General 1899
--- OUTSIDE RECORDS SUMMARY | 2024-12-31 15:21 | XMS_ITS | Clinical Summary ---
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 Dayanara Nye MD Primary [...] Active Problems Problem Noted Date Diagnosed Date Cervical radiculopathy 03/03/2022 Overview (04/15/2024): Seeing Dr [...] Overview (04/15/2024): Currently on HCTZ Asthma 04/20/2005 Resolved Problems Problem Noted Date Diagnosed Date Resolved Date Neck pain 05/09/2022 12/05/2024 Headache 04/20/2005 12/05/2024 Lumbago 04/20/2005 12/05/2024 Encounters Date Type Department Care Team Description 12/12/2024 Telephone Gastroenterology - [place] [facility] 175 [facility] [address] [place] [address] Ruthy Glass MD 12/09/2024 1:43 PM EDT - 12/09/2024 11:59 PM EDT Hospital Encounter [facility] [address] [place] [phone] Encounter for screening mammogram for malignant neoplasm of breast Discharge Disposition: Home or Self Care 12/05/2024 3:00 PM EDT Office Visit Adult Medicine [facility] [address] [place] [phone] Desirae nazario, Dayanara Vasquez MD Adult general medical examination (Primary Dx); Encounter for screening mammogram for malignant neoplasm of breast; Screen for colon cancer; Encounter for lipid screening for cardiovascular disease from Last 3 Months Immunizations Name Administration Dates Next Due Influenza Quadravalent, MDCK , 0.5ml, preservative free (Flucelvax) 6mo and older 02/24/2020 Influenza trivalent, 0.5mL, preservative free (Fluarix; FluLaval; Fluzone) ages 6mo and older (Afluria) 3 years and older 03/05/2012 Influenza trivalent, with preservative (Fluzone; Afluria) 6mo and older 03/17/2016,01/10/2013,03/19/2011,2009,01/12/2009 Td Tetanus diptheria (Tdvax) 7yo and older 04/27/2004 Tdap Tetanus diptheria acell ular pertussis (Boostrix; Adacel) 7yo and older 01/06/2020,08/27/2009 Surgical History Surgery Date Site/Laterality Comments COLONOSCOPY 12/18/2005 PROCEDURE: MO COLONOSCOPY FLX DX W/COLLJ SPEC WHEN PFRMD; COMMENT: Golden; normal; dx: IBS-D ESOPHAGOGASTRODUODENOSCOPY 11/28/2013 PROCEDURE: MO EGD TRANSORAL BIOPSY SINGLE/MULTIPLE; COMMENT: Visually normal, duodenal biopsies: normal OTHER SURGICAL HISTORY 10/2014 PROCEDURE: MO UTERINE SUSPENSION W/WO SHORTENING LIGAMENTS SPX; COMMENT: rectocele, sling and Mirena insertion OTHER SURGICAL HISTORY 03/04/2018 PROCEDURE: HISTORICAL VAGINAL HYSTERECTOMY WITH BSO; COMMENT: GEE/BSO lap sacrocolpopexy, cystoscopy for stage II pelvic organ prolapse NOSE SURGERY 06/2020 PROCEDURE: MO UNLISTED PROCEDURE NOSE HYSTERECTOMY Medical History Medical History Date Comments Headache(784.0) 04/20/2005 DX:Headache(784. 0) Lumbago 04/20/2005 DX:Lumbago Childhood asthma 04/20/2005 DX:Childhood as thma Osteopenia 05/21/2009 DX:Osteopenia; C OMMENT: Referred to [facility] [employer], hx fractured vertabrae Other syndromes affecting ce [...] prolapse: vag Hyst, BSO, sacrocolpopexy, cystoscopy @ [facility] Lumbago 04/20/2005 Family History Medical History Relation Name Comments [...] drink = 0.6 oz pur e alcohol) Housing Instability Answer Date Recorde d Are you worried that in the next 2 months you may not have stable housing? No 12/04/2024 Food Access & Nutrition Answer Date Rec orded Do you have access to a vari ety of food including fruits and vegetables? Yes 12/04/2024 Access to Healthcare Answer Date Record ed Within the last 3 months, ho lisa many times did you visit the emergency department for your medical care? 0 12/04/2024 Health Literacy Answer Date Recorded How often do you need to hav e someone help you when you read instructions, pamphlets, or other written material from your doctor or pharmacy? Never 12/04/2024 Caregiver: How often do you need to have someone help you when you read instructions, pamphlets, or other written material from your doctor or pharmacy? Not on file 12/04/2024 Financial Risk Answer Date Recorded How hard is it for you to pa y for the very basics like food, housing, medical care, and air conditioning / heating? Not very hard 12/04/2024 Transportation Answer Date Recorded Has the lack of transportati on kept you from meetings, work, or from getting things needed for daily living? No Has the lack of transportati on kept you from medical appointments or from getting medications? No 12/04/2024 Social Isolation Answer Date Recorded How often do you feel lonely or isolated from th ose around you? Never 12/04/2024 Food Risk Answer Date Recorded Within the past 12 months we worried whether our food would run out before we got money to buy more. Never true 12/04/2024 Within the past 12 months th e food we bought just didn't last and we didn't have money to get more. Never true 12/04/2024 Dependent Care Answer Date Recorded Do you need help finding or paying for care for your loved ones. For example, home child care provider or elderly care for an older adult? No 12/04/2024 Education Answer Date Recorded Do you think completing more education or training, like finishing a GED, going to college, or learning a trade, would be helpful for you? N/A 12/04/2024 Employment and Income Answer Date Recor ded During the last four weeks, have you been actively looking for work? No 12/04/2024 Living Situation Answer Date Recorded What is your living situation? 0 12/04/2024 Comments No Sex and Gender Information Value Date Recorded Sex Assigned at Not on file Legal Sex Female 4:36 PM EDT Gender Identity Not on file Sexual Orientation Not on file Obstetrics History Para Term AB IAB SAB Ectopic Multiple Livin g Live Births 1 Last Filed Vital Signs Vital Sign Reading Time Taken Comments Blood Pressure 93/48 12/05/2024 3:03 PM EDT paolo l recheck Pulse 67 12/05/2024 3:00 PM EDT Temperature 35.9 C (96.6 F) 12/05/2024 3:00 PM EDT Respiratory Rate 14 12/05/2024 3:00 PM EDT Oxygen Saturation 97% 12/05/2024 3:00 PM EDT Inhaled Oxygen Concentration - - Weight 53.5 kg (118 lb) 12/09/2024 1:49 PM EDT Height 157.5 cm (5' 2 ) 12/09/2024 1:49 PM EDT Body Mass Index 21.58 12/09/2024 1:49 PM EDT Plan of Treatment Upcoming Encounters Date Type Department Care Team (Late st Contact Info) Description 03/06/2025 12:30 PM EST Appointment [facility] [address] [place] [phone] Johnnie Perez DO [address] [place] [address] 12/08/2025 3:00 PM EDT Office Visit Adult Medicine [address] [phone] Dayanara Nye MD [address] [place] [address] Health Maintenance Due Date Last Done Comments Colorectal Cancer Screening: Colonoscopy 01/23/2022 COVID-19 Vaccine ( - 2023- season) 2023 05/10/2021, 09/16/2020, 08/19/2020 Influenza Vaccine (#1) 2024 , 03/17/2016, 01/10/2013, Additional history exists Social Influencers of Health Screening 12/04/2025 12/04/2024 Breast Cancer Screening 12/09/2025 12/10/19, 12/11/2022, 12/01/2021, Additional history exists Cholesterol Screening (Lipid Panel) 12/25/2029 12/25/2024, 12/05/2023, 12/05/2023 DTaP,Tdap,and Td Vaccines (4 - Td or Tdap) 01/05/2030 01/06/2020, 08/27/2009, 04/27/2004 Hepatitis C Screening Completed 09/11/2017 HIV Screening Completed 03/16/2020 Depression Screening Completed 12/04/2024 HIB Vaccines Aged Out No longer eligi ble based on patient's age to complete this topic HPV Vaccines Aged Out No longer eligi ble based on patient's age to complete this topic Hepatitis A Vaccines Aged Out No long er eligible based on patient's age to complete this topic Hepatitis B Vaccines Discontinued IPV Vaccines Aged Out No longer eligi [...] age to complete this topic Pneumococcal Vaccine: Pediatrics (0 to 5 Years) and At-Risk Patients (6 to 49 Years) Discontinued RSV Immunization Patients Under 20 months Aged Out No longer eligible based on patient's age to complete this topic Varicella Vaccines Aged Out No longer eligible based on patient's age to complete this topic Procedures Procedure Name Priority Date/Time Associated Diagnosis Comments CBC WITH AUTO DIFFERENTIAL Routine 12/25/2024 9:43 AM EDT Dizziness CBC AND DIFFERENTIAL Routine 12/25/2024 9:43 AM EDT Dizziness COMPREHENSIVE METABOLIC PANEL Routine 12/25/2024 9:43 AM EDT Dizziness LIPID PANEL WITH REFLEX TO DIRECT LDL Routine 12/25/2024 9:43 AM EDT Encounter for lipid screening for cardiovascular disease VITAMIN B12 Routine 12/25/2024 9:43 AM EDT Adult general medical examination MG MAMMO DIGITAL SCREENING W MORRIS BILAT Routine 12/09/2024 2:00 PM EDT Encounter for screening mammogram for malignant neoplasm of breast HIV SCREENING Routine 03/16/2020 HEPATITIS C SCREENING Routine 09/11/2017 from Last 3 Months or Most Recently Relevant to Health Maintenance Results * Lipid panel with reflex to direct LDL (12/25/2024 9:43 AM EDT) Cholesterol 123 0 - 200 mg/dL LAB CHEMISTRY METHOD 12/25/2024 2:37 PM EDT [facility] Triglycerides 61 0 - 150 mg/dL LAB CHEMISTRY METHOD 12/25/2024 2:37 PM EDT [facility] HDL 66 >=40 mg/dL LAB CHEMISTRY METHOD 12/25/2024 2:37 PM EDT [facility] LDL Calculated 45 0 - 100 mg/dL LAB CHEMISTRY METHOD 12/25/2024 2:37 PM EDT [facility] Comment:Estimated LDL Calcul ated using equation: Total cholesterol - HDL cholesterol - (Triglycerides/5) VLDL Cholesterol Chris 12.2 mg/dL LAB CHEMISTRY METHOD 12/25/2024 2:37 PM EDT [facility] Non HDL Chol. (LDL+VLDL) 57 <145 mg/dL LAB CHEMISTRY METHOD 12/25/2024 2:37 PM EDT [facility] Chol/HDL Ratio 1.9 0.0 - 4.4 LAB CHEMISTRY METHOD 12/25/2024 2:37 PM EDT [facility] Blood Venous blood specimen / Unknown Venipuncture / Unknown 12/25/2024 9:43 AM EDT 12/25/2024 9:43 AM EDT us Dayanara Nye MD LAB BLOOD ORDERABL ES Final Result [facility] [address] [place] [address], * CBC auto differential (12/25/2024 9:43 AM EDT) WBC 5.6 4.8 - 10.8 K/mcL LAB HEMETOLOGY METHOD 12/25/2024 12:42 PM [facility] RBC 4.30 3.80 - 4.80 M/[facility] LAB HEMETOLOGY METHOD 12/25/2024 12:42 PM [facility] Hemoglobin 13.8 11.5 - 16.0 g/dL LAB HEMETOLOGY METHOD 12/25/2024 12:42 PM [facility] Hematocrit 41.1 35.0 - 47.0 % LAB HEMETOLOGY METHOD 12/25/2024 12:42 PM [facility] MCV 94.9 79.0 - 98.0 FL LAB HEMETOLOGY METHOD 12/25/2024 12:42 PM [facility] MCH 31.9 27.0 - 32.0 pcg LAB HEMETOLOGY METHOD 12/25/2024 12:42 PM [facility] MCHC 33.6 32.0 - 37.0 g/dL LAB HEMETOLOGY METHOD 12/25/2024 12:42 PM EDT [facility] RDW 12.0 11.0 - 15.0 % LAB [facility]EMETOLOGY [facility]25[facility]24 [facility] Platelets 219 130 - 400 K/mcL LAB HEMETOLOGY METHOD 12/25/2024 12:42 PM [facility] MPV 10.2 7.0 - 11.0 FL LAB HEMETOLOGY METHOD [facility]25[facility]2024 12[facility] NRBC 0.0 <1.0 % LAB HEMETOLOGY METHOD 12/25/2024 12:42 PM [facility] NRBC Absolute 0.00 <0.10 K/mcL LAB HEMETOLOGY METHOD 12/25/2024 12:42 PM [facility] Neutrophils Relative 63.5 % LAB HEMETOLOGY METHOD 12/25/2024 12:42 PM [facility] Lymphocytes Relative 25.3 % LAB HEMETOLOGY METHOD 12/25/2024 12:42 PM [facility] Monocytes Relative 8.7 % LAB HEMETOLOGY METHOD 12/25/2024 12:42 PM [facility] Eosinophils Relative 1.6 % LAB HEMETOLOGY METHOD 12/25/2024 12:42 PM [facility] Basophils Relative 0.5 % LAB HEMETOLOGY METHOD 12/25/2024 12:42 PM [facility] Immature Granulocytes Relative 0.4 % LAB HEMETOLOGY METHOD 12/25/2024 12:42 PM [facility] Neutrophils Absolute 3.57 1.50 - 7.00 K/mcL LAB HEMETOLOGY METHOD 12/25/2024 12:42 PM [facility] Lymphocytes Absolute 1.42 1.00 - 5.00 K/mcL LAB HEMETOLOGY METHOD 12/25/2024 12:42 PM EDT [facility] Monocytes Absolute 0.49 0.20 - 1.00 K/mcL LAB HEMETOLOGY METHOD 12/25/2024 12:42 PM EDT [facility] Eosinophils Absolute 0.09 0.00 - 0.50 K/mcL LAB HEMETOLOGY METHOD 12/25/2024 12:42 PM EDT [facility] Basophils Absolute 0.03 0.00 - 0.20 [facility] HEMETOLOGY METHOD 12/25/2024 12:42 PM EDT [facility] Immature Granulocytes Absolute 0.02 0.00 - 0.03 [facility] LAB HEMETOLOGY METHOD 12/25/2024 12:42 PM EDT [facility] Blood Venous blood specimen / Unknown Venipuncture / Unknown 12/25/2024 9:43 AM EDT 12/25/2024 9:43 AM EDT us Merced BRADSHAWP LAB BLOOD ORDERABLES Elis l Result [facility] [address] [place] [address], * (ABNORMAL) Vitamin B12 (12/25/2024 9:43 AM EDT) Pathologist [facility] Vitamin B-12 1,070(H) 250 - 900 pcg/mL LAB CHEMISTRY METHOD 12/25/2024 2:37 PM EDT [facility] Blood Venous blood specimen / Unknown Venipuncture / Unknown 12/25/2024 9:43 AM EDT 12/25/2024 9:43 AM EDT Dayanara Nye MD LAB BLOOD ORDERABL ES Final Result [facility] [address] [place] [address], * Comprehensive metabolic panel (12/25/2024 9:43 AM EDT) Sodium 136 133 - 145 mmol/L LAB CHEMISTRY METHOD 12/25/2024 2:37 PM [facility] Potassium 4.1 3.5 - 5.5 mmol/L LAB CHEMISTRY METHOD 12/25/2024 2:37 PM [facility] Chloride 105 96 - 110 mmol/L LAB CHEMISTRY METHOD 12/25/2024 2:37 PM [facility] CO2 26 21 - 32 mmol/L LAB CHEMISTRY METHOD 12/25/2024 2:37 PM [facility] Anion Gap 5 3 - 11 LAB CHEMISTRY METHOD 12/25/2024 2:37 PM [facility] Glucose 90 70 - 100 mg/dL LAB CHEMISTRY METHOD 12/25/2024 2:37 PM [facility] BUN 14 5 - 25 mg/dL LAB CHEMISTRY METHOD 12/25/2024 2:37 PM [facility] Creatinine 0.77 0.50 - 1.10 mg/dL LAB CHEMISTRY METHOD 12/25/2024 2:37 PM [facility] eGFR 97 >=60 mL/min/1. 73m2 LAB CHEMISTRY METHOD 12/25/2024 2:37 PM [facility] Comment:Calculation based on the Chronic Kidney Disease Epidemiology Collaboration (CKD-EPI) equation refit without adjustment for race. BUN/Creatinine Ratio 18.2 LAB CHEMISTRY METHOD 12/25/2024 2:37 PM [facility] Calcium 9.1 8.5 - 10.5 mg/dL LAB CHEMISTRY METHOD 12/25/2024 2:37 PM [facility] AST (SGOT) 15 10 - 42 unit/L LAB CHEMISTRY METHOD 12/25/2024 2:37 PM [facility] ALT (SGPT) 23 10 - 60 unit/L LAB CHEMISTRY METHOD 12/25/2024 2:37 PM EDT [facility] Alkaline Phosphatase 49 42 - 121 unit/L LAB CHEMISTRY METHOD 12/25/2024 2:37 PM EDT [facility] Total Protein 6.8 6.0 - 8.0 g/dL LAB CHEMISTRY METHOD 12/25/2024 2:37 PM EDT [facility] Albumin 4.2 3.2 - 5.0 g/dL LAB CHEMISTRY METHOD 12/25/2024 2:37 PM EDT [facility] Total Bilirubin 1.3 0.0 - 1.4 mg/dL LAB CHEMISTRY METHOD 12/25/2024 2:37 PM EDT [facility] Blood Venous blood specimen / Unknown Venipuncture / Unknown 12/25/2024 9:43 AM EDT 12/25/2024 9:43 AM EDT Merced [facility] [employer] LAB BLOOD ORDERABLES Elis l Result [facility] [address] [place] [address], [place] [phone] * MG Mammo Digital Screening w Morris bilat (12/09/2024 2:00 PM EDT) Anatomical Region Laterality Modality Breast Bilateral Mammography 12/09/2024 5:39 PM EDT Impressions 12/09/2024 5:47 PM EDT Benign. BI-RADS CATEGORY: 1 - NEGATIVE RECOMMENDATION: Screening bilateral mammogram is recommended in 1 year. Mammo Location: [facility], [address] [place], [place], [address], . -------- FINAL REPORT -------- Dictated By: Dereje Jorgensen Dictated Date: 12/09/2024 17:39 ET Assigned Physician: Dereje Jorgensen Reviewed and Electronically Signed By: Dereje Jorgensen Signed Date: 12/09/2024 17:47 ET Workstation ID: [id number] Transcribed By: Self Edit Transcribed Date: 12/09/2024 17:39 ET Narrative 12/09/2024 5:47 PM EDT CLINICAL: 44 years old, Female, routine annual exam. COMPARISON: 12/11/2022. TECHNIQUE: Bilateral MLO and CC views were obtained digitally with 3-D mammogram (digital breast tomosynthesis). Computer-aided detection was utilized in evaluation of this exam (CAD). FINDINGS: There is no evidence of suspicious mass or architectural distortion. No worrisome calcifications are evident. There has been no significant change from prior exam(s). BREAST DENSITY: D - The breasts are extremely dense which lowers the sensitivity of mammography. Procedure Note Dereje Jorgensen MD - 12/09/2024 CLINICAL: 44 years old, Female, routine annual exam. COMPARISON: 12/11/2022. TECHNIQUE: Bilateral MLO and CC views were obtained digitally with 3-Dmammogram (digital breast tomosynthesis). Computer-aided detection wasutilized in evaluation of this exam (CAD). FINDINGS: There is no evidence of suspicious mass or architectural distortion. Noworrisome calcifications are evident. There has been no significantchange from prior exam(s). BREAST DENSITY: D - The breasts are extremely dense which lowers thesensitivity of mammography. IMPRESSION: Benign. BI-RADS CATEGORY: 1 - NEGATIVE RECOMMENDATION: Screening bilateral mammogram is recommended in 1 year. Mammo Location: [facility], [address] [place] [address], [id number], . -------- FINAL REPORT -------- Dictated By: Dereje Jorgensen Dictated Date: 12/09/2024 17:39 ET Assigned Physician: Dereje Jorgensen Reviewed and Electronically Signed By: Dereje Jorgensen Signed Date: 12/09/2024 17:47 ET Workstation ID: [id number] Transcribed By: Self Edit Transcribed Date: 12/09/2024 17:39 ET Dayanara Nye MD IMG BI PROCEDURES Final Result * HIV Screening (03/16/2020) HIV Screening abstracted Historical Provider HEALTH MAINTENANCE Final Result * Hepatitis C Screening (09/11/2017) Hepatitis C Screening abstracted Historical Provider HEALTH MAINTENANCE Final Result from Last 3 Months or Most Recently Relevant to Health Maintenance Insurance [facility] Care Teams Cnc Machinist Relationship Specialty Start Date End Date Dayanara Nye MD [address] [place] [address] [place] [address] PCP - General 05/29/22
== END 2024-12-31 14:03 | disposition home or self-care (01) ==
PROVIDERS: PCP Internal Medicine; Visit Provider Nurse Practitioner Family
DX: M50.30 Other cervical disc degeneration, unspecified cervical region (principal); M50.20 Other cervical disc displacement, unspecified cervical region
CPT/HCPCS: 99213